=== PATIENT | female | born 1935 | race African-American/Black ===

== ENCOUNTER 2021-12-19 09:54 | Inpatient (IN) | payer MEDICARE, OTHER ==
[~2021-12-19] VITALS: Ht 170.2 cm; Wt 81.6 kg
[2021-12-19 10:37] LABS: BILIRUBIN NEGATIVE (NEGATIVE); BLOOD TRACE-INTACT Ery/uL (NEGATIVE); CLARITY HAZY (CLEAR); COLOR YELLOW (YELLOW); GLUCOSE (U) NORMAL (NORMAL); LEUKOCYTES NEGATIVE Leu/uL (NEGATIVE); NITRITE NEGATIVE (NEGATIVE); PROTEIN 2+ mg/dL (NEGATIVE); SPECIFIC GRAVITY 1.025 (1.001-1.030); UROBILINOGEN 0.2 mg/dL (0.2-1.0); pH 5.5 (5.0-9.0)
[2021-12-19 10:44] LABS: URINARY WBC RARE
[2021-12-19 10:46] LABS: AMORPHOUS URATES CRYSTALS TRACE; BACTERIA 1+
[2021-12-19 10:53] LABS: BASOPHIL 0.2 % (0-2); EOSINOPHIL 0.1 % (0-7); HCT 36.9 % (37.0-47.0); HGB 11.1 g/dl (12.5-16.0); LYMPHOCYTE 4.4 % (15-48); MCH 27.3 pg (25.0-31.0); MCHC 30.1 g/dL (32.0-36.0); MCV 90.7 fL (78.0-100.0); MONOCYTE 4.2 % (0-12); MPV 11.8 fL (6.0-9.5); NEUTROPHIL 89.2 % (41-80); NRBC 2.7; PLT 379 K/uL (150-400); RBC 4.07 M/uL (4.20-5.40); RDW 17.2 % (11.5-14.0)
[2021-12-19 11:10] LABS: WBC 13.5 K/uL (4.0-10.5)
[2021-12-19 11:31] LABS: INR 1.31 (0.9-1.2); PROTHROMBIN TIME 15.6 SECONDS (11.8-13.4); PTT 25.2 SECONDS (24.4-34.7)
[2021-12-19 11:37] LABS: INFLUENZA A NAA NEGATIVE (NEGATIVE)
[2021-12-19 11:41] LABS: CORONAVIRUS 2019 SARS-COV-2 POSITIVE (NEGATIVE)
[2021-12-19 11:46] LABS: CKMB 2.2 ng/mL (0.0-3.6)
[2021-12-19 11:47] LABS: LACTIC ACID 2.3 mmol/L (0.4-1.9)
[2021-12-19 12:47] LABS: CREATININE 3.15 mg/dL (0.51-0.95); POTASSIUM 5.8 mmol/L (3.5-5.1)
[2021-12-19 12:48] LABS: ALBUMIN 2.3 g/dL (3.4-5.0); BILIRUBIN - TOTAL 0.9 mg/dL (0.2-1.0); GLOBULIN (CALCULATION) 4.7 g/dL
[2021-12-20 05:36] LABS: BASOPHIL 0.5 % (0-2); EOSINOPHIL 0 % (0-7); MCH 27.4 pg (25.0-31.0); MCV 91.5 fL (78.0-100.0); MONOCYTE 2.7 % (0-12); MPV 11.9 fL (6.0-9.5); NEUTROPHIL 93.3 % (41-80); NRBC 1.2; PLT 317 K/uL (150-400); RBC 3.28 M/uL (4.20-5.40); RDW 17.2 % (11.5-14.0)
[2021-12-20 06:35] LABS: CHLORIDE 111 mmol/L (98-107); CO2 (BICARBONATE) 17 mmol/L (21-32); CREATININE 3.35 mg/dL (0.51-0.95); GLUCOSE 100 mg/dL (74-106); MAGNESIUM 2.3 mg/dL (1.8-2.4); PHOSPHORUS 6.1 mg/dL (2.6-4.7); POTASSIUM 6.4 mmol/L (3.5-5.1)
[2021-12-20 07:02] LABS: BUN 117 mg/dL (7-18); C-REACTIVE PROTEIN > 18.00 mg/dL (<=0.90)
--- NOTE | 2021-12-20 12:38 | NUR ---
Nutrition screening placed d/t recent wt loss and decreased appetite MST 4; pt currently lethargic and confused, on clears for p.o. will monitor cognition for full assessment and nutritional recommendations
--- NOTE | 2021-12-20 13:58 | NUR ---
12/20/21 Will complete a social assessment when appropriate.
[2021-12-20 15:09] LABS: CREATININE 3.2 mg/dL (0.51-0.95); POTASSIUM 5.9 mmol/L (3.5-5.1)
[2021-12-21 07:33] LABS: ALBUMIN 1.7 g/dL (3.4-5.0); CHLORIDE 107 mmol/L (98-107); CO2 (BICARBONATE) 26 mmol/L (21-32); CREATININE 2.82 mg/dL (0.51-0.95); GLUCOSE 251 mg/dL (74-106); PHOSPHORUS 5.5 mg/dL (2.6-4.7); POTASSIUM 5.5 mmol/L (3.5-5.1)
[2021-12-21 07:35] LABS: BUN 115 mg/dL (7-18); C-REACTIVE PROTEIN > 18.00 mg/dL (<=0.90)
[2021-12-22 05:45] LABS: BASOPHIL 0.2 % (0-2); EOSINOPHIL 0 % (0-7); HCT 25.1 % (37.0-47.0); HGB 7.9 g/dl (12.5-16.0); LYMPHOCYTE 0.6 % (15-48); MCH 27.2 pg (25.0-31.0); MCHC 31.5 g/dL (32.0-36.0); MONOCYTE 2.2 % (0-12); MPV 11.5 fL (6.0-9.5); NRBC 0.7; PLT 243 K/uL (150-400); RDW 16.6 % (11.5-14.0); WBC 18.4 K/uL (4.0-10.5)
[2021-12-22 05:46] LABS: MCV 86.6 fL (78.0-100.0)
[2021-12-22 06:07] LABS: ALBUMIN 2.9 g/dL (3.4-5.0); ALKALINE PHOSHATASE 69 U/L (46-116); ALT 20 U/L (14-59); AST 24 U/L (15-37); BILIRUBIN - TOTAL 1.3 mg/dL (0.2-1.0); CHLORIDE 102 mmol/L (98-107); CO2 (BICARBONATE) 26 mmol/L (21-32); CREATININE 2.18 mg/dL (0.51-0.95); GLOBULIN (CALCULATION) 3.9 g/dL; GLUCOSE 164 mg/dL (74-106); POTASSIUM 4.5 mmol/L (3.5-5.1); TOTAL PROTEIN 6.8 g/dL (6.4-8.2)
[2021-12-22 06:08] LABS: BUN 102 mg/dL (7-18); C-REACTIVE PROTEIN < 18.00 mg/dL (<=0.90)
--- NOTE | 2021-12-22 17:51 | NUR ---
ATTEMPTED TO CALL DR. LILLY 3 TIMES TO INFORM HIM THAT PT O2 SAT DROPPED TO 60s-70s. RESPIRATORY CAME TO ADJUST BIPAP SETTINGS WITHOUT ANY SUCCESS. TALKED WITH DR. HERNANDEZ ABOUT SITUATION AND INFORMED THAT I HAVE CALLED THE FAMILY.
--- NOTE | 2021-12-22 18:25 | NUR ---
FAMILY CAME TO SEE PT AFTER THEY WERE CONTACTED ABOUT HER DECLINE. DR. LILLY TALKED WITH DAUGHTER AND EXPLAINED THAT THE PT HAD DEVELOPED ARDS AND GAVE THE FAMILY OPTIONS FAR COMFORT CARE OR NOT. FAMILY TO DISCUSS AND LET US KNOW THEIR WISHES.
--- NOTE | 2021-12-22 21:24 | NUR ---
DR. LILLY SPOKE TO FAMILY ABOUT MAKE PT. COMFORT CARE. AROUND 1999 FAMILY DECIDED TO MAKE PT. COMFORT CARE. RT CAME AND REPLACED THE BIPAP WITH 4LNC AROUND 2019. PT. RECEIVED 2MG IV MORPINE AT 2029 AND WAS PRONOUNCED AT 2039. LINSEY SPEAKING WITH FAMILY NOW. CHECKLIST COMPLETE. AB,RN
== END 2021-12-22 23:10 | disposition expired | DRG 871 ==
LOC: FER 09:54 → FICU 11:57
PROVIDERS: Emergency Medicine; ADMIT Allergy & Immunology Allergy
PROC: 3E0333Z Introduction of Anti-inflammatory into Peripheral Vein, Percutaneous Approach (ICD-10-PCS; principal; 2021-12-19)
PROC: 8E0ZXY6 Isolation (ICD-10-PCS; 2021-12-19)
PROC: 3E03329 Introduction of Other Anti-infective into Peripheral Vein, Percutaneous Approach (ICD-10-PCS; 2021-12-20)
PROC: 5A0935A Assistance with Respiratory Ventilation, Less than 24 Consecutive Hours, High Flow/Velocity Cannula (ICD-10-PCS; 2021-12-20)
PROC: 5A09457 Assistance with Respiratory Ventilation, 24-96 Consecutive Hours, Continuous Positive Airway Pressure (ICD-10-PCS; 2021-12-20)
PROC: 5A0935A Assistance with Respiratory Ventilation, Less than 24 Consecutive Hours, High Flow/Velocity Cannula (ICD-10-PCS; 2021-12-21)
PROC: 02HV33Z Insertion of Infusion Device into Superior Vena Cava, Percutaneous Approach (ICD-10-PCS; 2021-12-21)
PROC: 5A0935A Assistance with Respiratory Ventilation, Less than 24 Consecutive Hours, High Flow/Velocity Cannula (ICD-10-PCS; 2021-12-22)
PROC: 5A09357 Assistance with Respiratory Ventilation, Less than 24 Consecutive Hours, Continuous Positive Airway Pressure (ICD-10-PCS; 2021-12-22)
DX: A41.01 Sepsis due to Methicillin susceptible Staphylococcus aureus (principal); U07.1 COVID-19; J12.82 Pneumonia due to coronavirus disease 2019; J80 Acute respiratory distress syndrome; G93.41 Metabolic encephalopathy; I21.A1 Myocardial infarction type 2; J15.9 Unspecified bacterial pneumonia; N17.0 Acute kidney failure with tubular necrosis; E87.2 Acidosis; I45.2 Bifascicular block; Z66 Do not resuscitate; Z51.5 Encounter for palliative care; R65.20 Severe sepsis without septic shock; I46.9 Cardiac arrest, cause unspecified; E86.0 Dehydration; R00.1 Bradycardia, unspecified; E87.5 Hyperkalemia; I12.9 Hypertensive chronic kidney disease with stage 1 through stage 4 chronic kidney disease, or unspecified chronic kidney disease; N18.30 Chronic kidney disease, stage 3 unspecified; E78.5 Hyperlipidemia, unspecified; D63.1 Anemia in chronic kidney disease; H91.90 Unspecified hearing loss, unspecified ear; M19.90 Unspecified osteoarthritis, unspecified site; Z87.891 Personal history of nicotine dependence; Z79.899 Other long term (current) drug therapy; Z87.440 Personal history of urinary (tract) infections
CPT/HCPCS: 36415; 36600; 71045; 80048; 80053; 80069; 81001; 82553; 82803; 82962; 83605; 83735; 83880; 84100; 84484; 85025; 85610; 85730; 86140; 87040; 87077; 87186; 93005; 94640; 94660; C9399; J0610; J0696; J1100; J1642; J1644; J1650; J1940; J1956; J2020; J2270; J2405; J7030; J7050; J7070; P9046; P9047; U0002